=== PATIENT | female | born 1995 | race Caucasian/White ===

== ENCOUNTER 2017-06-05 22:32 | Emergency (ER) | payer OTHER ==
[~2017-06-05] VITALS: Ht 160 cm; Wt 96.2 kg
[~2017-06-05 22:32] MED LIST: AZITHROMYCIN250 MG PO; NORCO 5-325 TA1 EACH PO
[2017-06-06] MEDS ORDERED: NAPROSYN500 MG PO (00:48)
[2017-06-06] MEDS ORDERED: DOXYCYCLINE HY100 MG PO (00:48)
== END 2017-06-06 01:08 | disposition home or self-care (01) ==
LOC: ED 22:32
DX: N73.0 Acute parametritis and pelvic cellulitis (principal)
CPT/HCPCS: 80053; 81001; 84703; 85025; 87491; 87591; 99284

== ENCOUNTER 2019-12-18 16:22 | Emergency (ER) | payer BC ==
[~2019-12-18] VITALS: Ht 160 cm; Wt 97.1 kg
[~2019-12-18 16:22] MED LIST changes: +DOXYCYCLINE HY100 MG PO; +NAPROSYN500 MG PO
[2019-12-18] MEDS ORDERED: PRENATAL MULTI1 EAC3 PO (16:44)
== END 2019-12-18 19:31 | disposition home or self-care (01) ==
LOC: ED 16:22
DX: O20.0 Threatened abortion (principal); Z88.0 Allergy status to penicillin
CPT/HCPCS: 81001; 84702; 85025; 86900; 86901; 87088; 99284

== ENCOUNTER 2020-07-19 13:31 | Emergency (ER) | payer BC ==
[~2020-07-19] VITALS: Ht 160 cm; Wt 97.1 kg
[~2020-07-19 13:31] MED LIST changes: +PRENATAL MULTI1 EAC3 PO
[2020-07-19] MEDS ORDERED: REGLAN10 MG PO (16:43)
[2020-07-19] MEDS ORDERED: ONDANSETRON ODT8 MG PO (16:43)
[2020-07-19] MEDS ORDERED: PEPCID20 MG PO (16:43)
== END 2020-07-19 16:58 | disposition home or self-care (01) ==
LOC: ED 13:31
DX: O99.613 Diseases of the digestive system complicating pregnancy, third trimester (principal); K29.00 Acute gastritis without bleeding; Z88.0 Allergy status to penicillin; Z3A.36 36 weeks gestation of pregnancy
CPT/HCPCS: 80053; 81001; 85025; 96361; 96374; 96375; 99284-25; C9803; J2405; J2765; J7030

== ENCOUNTER 2020-08-11 07:25 | Inpatient (IN) | payer BC ==
[~2020-08-11 07:25] MED LIST changes: +ONDANSETRON ODT8 MG PO; +PEPCID20 MG PO; +REGLAN10 MG PO
--- NOTE | 2020-08-11 17:56 | PR ---
[facility] [address] [place], [place] [address] Signed Progress Notes IP Datetime Report Generated by IDRIS: 08/11/2020 17:56 PROGRESS NOTES: [id number] Impression: Reassuring Heart Rate Procedures: Scalp Electrode; Sterile Vag Exam Plan: Continue Present Management; Anticipate Vaginal Delivery Informed Consent Obtain: Risks, Benefits and Alternatives Discussed VITAL SIGNS: [id number] Vital Signs: Reviewed; Within Normal Limits EXAM: [id number] Dilatation: 8.0 Effacement: 90 Station: 0 Contractions: q4min MEMBRANES: [id number] Membranes Status: Ruptured Comments: Patient positioning limited by epidural and difficulty tracing FHR; r/b/a to FSE discussed with pt who elects to proceed. FSE placed without difficulty. Continue pitocin. FETUS A: [id number] FHR Baseline: 140 Variability: Moderate 6-25bpm Accelerations: 15X15 Decelerations: Late FHR Category: Category II Presentation: Vertex Comments on Fetus A: reassuring with variability and accels FETUS B: [id number] Signing Physician: Maria Fernanda Verma DO Copies: ~ PATIENT NAME: OSWALDO BERNSTEIN CARLOS PROGRESS NOTE DATE OF : [birth year] PHYSICIAN: MARIA FERNANDA VERMA DO RPT #: [id number] REPORT IS CONFIDENTIAL AND NOT TO BE RELEASED WITHOUT AUTHORIZATION
--- NOTE | 2020-08-11 20:11 | PR ---
[facility] [address] [facility] [place] [place] [address] Signed Progress Notes IP Datetime Report Generated by IDRIS: 08/11/2020 20:11 PROGRESS NOTES: [id number] Impression: Reassuring Heart Rate Procedures: Scalp Electrode; Sterile Vag Exam Plan: Continue Present Management; Anticipate Vaginal Delivery Informed Consent Obtain: Risks, Benefits and Alternatives Discussed VITAL SIGNS: [id number] Vital Signs: Reviewed; Within Normal Limits EXAM: [id number] Dilatation: 9.5 Effacement: 95 Station: 0 Contractions: q4min MEMBRANES: [id number] Membranes Status: Ruptured Comments: Pt nauseated and vomiting. Feeling pressure in her bottom with contractions, otherwise not painful. Occiput transverse. Will continue pitocin and maternal repositioning. FETUS A: [id number] FHR Baseline: 140 Variability: Moderate 6-25bpm Accelerations: 15X15 Decelerations: Late FHR Category: Category II Presentation: Vertex Comments on Fetus A: reassuring with variability and accels FETUS B: [id number] Signing Physician: Maria Fernanda Verma DO Copies: ~ PATIENT NAME: OSWALDO BERNSTEIN PROGRESS NOTE DATE OF : [birth year] PHYSICIAN: MARIA FERNANDA VERMA DO RPT #: [id number] REPORT IS CONFIDENTIAL AND NOT TO BE RELEASED WITHOUT AUTHORIZATION
--- NOTE | 2020-08-12 09:28 | PR ---
[facility] [address] [place] [address] Signed PP Progress Notes Datetime Report Generated by CPN: 08/12/2020 09:28 SUBJECTIVE: [id number] Pain: Within Normal Limits Nausea/Vomiting: Denies Flatus: Yes Bowel Movement: Yes Vital Signs: [id number] EXAM: Ongoing Cardiovascular: Normal Respiratory: Normal Abdomen/Uterus: Normal Extremities: Normal Progress: Normal Exam Comments: Fundus firm below umbilicus IMPRESSION/PLAN/PROCEDURES: [id number] Impression: Normal Progression Plan: Continue Present Management Progress Notes: PPD#1 s/p . complicated by GDM. Pt doing well , progressing appropriately. . Anticipate DC to home tomorrow. Signing Physician: Guerda Verma DO Copies: ~ PATIENT NAME: OSWALDO BERNSTEIN PROGRESS NOTE DATE OF : [birth year] PHYSICIAN: GUERDA VERMA DO RPT #: [id number] REPORT IS CONFIDENTIAL AND NOT TO BE RELEASED WITHOUT AUTHORIZATION
--- NOTE | 2020-08-13 08:37 | PR ---
[facility] [address] [facility] [place], [place] [address] Signed PP Progress Notes Datetime Report Generated by CPN: 08/13/2020 08:37 SUBJECTIVE: [id number] Pain: Within Normal Limits Nausea/Vomiting: Denies Flatus: Yes Bowel Movement: Yes Vital Signs: [id number] Vital Signs: Reviewed; Within Normal Limits EXAM: Ongoing Cardiovascular: Normal Respiratory: Normal Abdomen/Uterus: Normal Lochia: Normal Extremities: Normal Progress: Normal Exam Comments: Fundus firm below umbilicus IMPRESSION/PLAN/PROCEDURES: [id number] Impression: Normal Progression Plan: Discharge Progress Notes: PPD#2 s/p . Doing well . , lochia light. Pain well controlled with motrin. Hopes to go home today. DC instructions reviewed in detail. Signing Physician: Maria Fernanda Verma DO Copies: ~ PATIENT NAME: OSWALDO BERNSTEIN PROGRESS NOTE DATE OF : 94 PHYSICIAN: MARIA FERNANDA VERMA DO RPT #: [id number] REPORT IS CONFIDENTIAL AND NOT TO BE RELEASED WITHOUT AUTHORIZATION
== END 2020-08-13 16:25 | disposition home or self-care (01) | DRG 807 ==
LOC: FBCO 07:25 → FBC 08:10
PROVIDERS: ADMIT Obstetrics & Gynecology; ATTEND Obstetrics & Gynecology
PROC: 10E0XZZ Delivery of Products of Conception, External Approach (ICD-10-PCS; principal; 2020-08-11)
PROC: 0UQMXZZ Repair Vulva, External Approach (ICD-10-PCS; 2020-08-11)
PROC: 10907ZC Drainage of Amniotic Fluid, Therapeutic from Products of Conception, Via Natural or Artificial Opening (ICD-10-PCS; 2020-08-11)
PROC: 00HU33Z Insertion of Infusion Device into Spinal Canal, Percutaneous Approach (ICD-10-PCS; 2020-08-11)
PROC: 3E0R3BZ Introduction of Anesthetic Agent into Spinal Canal, Percutaneous Approach (ICD-10-PCS; 2020-08-11)
DX: O24.420 Gestational diabetes mellitus in childbirth, diet controlled (principal); Z37.0 Single live birth; Z3A.39 39 weeks gestation of pregnancy; O76 Abnormality in fetal heart rate and rhythm complicating labor and delivery; O70.0 First degree perineal laceration during delivery; O99.214 Obesity complicating childbirth; E66.9 Obesity, unspecified; Z88.0 Allergy status to penicillin; Z86.59 Personal history of other mental and behavioral disorders
CPT/HCPCS: 01960; 36415; 85027; A9270; J2590; J2795; J3010; J7121